=== PATIENT | male | born 1960 | race Two or more races ===

== ENCOUNTER 2024-10-31 07:08 | Outpatient (CLI) | payer OTHER ==
[~2024-10-31 07:08] MED LIST: COZAAR50 MG PO; LEXAPRO5 MG PO; ZETIA10 MG PO
== END 2024-10-31 07:21 | disposition home or self-care (01) ==
LOC: TOM 07:08
PROVIDERS: ATTEND Internal Medicine Gastroenterology
DX: R10.9 Unspecified abdominal pain (principal)
CPT/HCPCS: 74177; Q9965

== ENCOUNTER 2024-11-09 07:26 | Outpatient (CLI) | payer OTHER | END 2024-11-09 07:31 | disposition home or self-care (01) | LOC: SONOGRAMA 07:26 | PROVIDERS: ATTEND Internal Medicine Gastroenterology | DX: R10.9 Unspecified abdominal pain (principal) ==

== ENCOUNTER 2024-12-07 05:25 | Day surgery (SDC) | payer OTHER ==
[2024-11-29 10:50] VITALS: BP 121/77
[~2024-12-07] VITALS: Ht 177.8 cm; Wt 102.1 kg
[~2024-12-07 05:25] MED LIST changes: +HYZAAR 100-12.1 EACH PO; +LIPITOR40 M1; +WELLBUTRIN XL300 MG PO
[2024-12-07] MEDS ORDERED: CEFTRIAXONE SODIUM 2,000 MG VIAL ONE (06:57)
[2024-12-07] MEDS ORDERED: METRONIDAZOLE/SODIUM CHLORIDE 500 MG/100 ML PIGGYBACK IV ONE (06:58)
[2024-12-07] MEDS ORDERED: DIBUCAINE 30 GM TUBE ONE (07:13)
[2024-12-07] MEDS ORDERED: HEMOSTATIC MATRIX 1 KIT KIT TOP ONE (07:13)
[2024-12-07] MEDS ORDERED: BUPIVACAINE HCL/Mpf 0.5% 10ML VIAL ONE (07:14)
[2024-12-07] MEDS ORDERED: POVIDONE-IODINE 118 ML BOTT TOP ONE (07:14)
[2024-12-07] MEDS ORDERED: BUPIVACAINE LIPOSOME/PF 266 MG/20 ML VIAL IJ ONE (07:17)
[2024-12-07] MEDS ORDERED: NEURONTIN300 MG PO (09:16)
[2024-12-07] MEDS ORDERED: COLACE100 MG PO (09:16)
[2024-12-07] MEDS ORDERED: PERCOCET 5-3251 EACH PO (09:16)
[2024-12-07] MEDS ORDERED: ENALAPRILAT DIHYDRATE 1.25 MG/ML VIAL IV ONE ×2 (12:40→13:39)
== END 2024-12-07 15:25 | disposition home or self-care (01) ==
LOC: CIR.AMB 05:25
PROVIDERS: ATTEND Surgery
DX: K64.2 Third degree hemorrhoids (principal); K64.4 Residual hemorrhoidal skin tags; K62.89 Other specified diseases of anus and rectum; K62.5 Hemorrhage of anus and rectum

== ENCOUNTER 2025-04-12 15:45 | Outpatient (CLI) | payer OTHER ==
[~2025-04-12 15:45] MED LIST changes: +COLACE100 MG PO; +NEURONTIN300 MG PO; +PERCOCET 5-3251 EACH PO
== END 2025-04-12 15:47 | disposition home or self-care (01) ==
LOC: LAB 15:45
PROVIDERS: ATTEND Urology
DX: R97.20 Elevated prostate specific antigen [PSA] (principal)

== ENCOUNTER 2025-04-26 07:13 | Outpatient (CLI) | payer OTHER | END 2025-04-26 07:16 | disposition home or self-care (01) | LOC: SONOGRAMA 07:13 | PROVIDERS: ATTEND Urology | DX: N40.1 Benign prostatic hyperplasia with lower urinary tract symptoms (principal); R97.20 Elevated prostate specific antigen [PSA] ==

== ENCOUNTER 2025-05-14 09:14 | Outpatient (CLI) | payer OTHER | END 2025-05-14 09:20 | disposition home or self-care (01) | LOC: SONOGRAMA 09:14 | PROVIDERS: ATTEND General Practice | DX: M25.541 Pain in joints of right hand (principal) ==